=== PATIENT | male | born 1975 | race Caucasian/White ===

== ENCOUNTER 2017-03-03 20:44 | Emergency (ER) | payer BC ==
[2017-03-03 20:57] VITALS: BP 117/71
--- NOTE | 2017-03-03 21:15 | UC ---
Ear Complaint HPI - HPI Summary HPI Summary: 42 y/o male presents to the urgent care c/o left ear pain since this afternoon. Pain is throbbing 4/10 that is increasing. Pt has not taking anything to alleviate symptoms. Pt denies fever, dental pain, nasal congestion, ringing of the ear, dizziness, cough, sore throat, chest pain, N/V/D, abdominal pain. Pt states he had PMHX of GERD for the past 20 years and he did a colonoscopy about 1 year ago and since then symptoms resolved. Now only on diet control. - History of Current Complaint Chief Complaint: UCEar Stated Complaint: LEFT EAR PAIN Time Seen by Provider: 03/03/17 20:51 Hx Obtained From: Patient Onset/Duration: Sudden Onset, Lasting Days - today Severity Initially: Mild Severity Currently: Mild Pain Intensity: 4 Pain Scale Used: 0-10 Numeric Aggravating Factors: Nothing Alleviating Factors: Nothing Associated Signs/Symptoms: Negative: Hearing Loss, Trauma to Ear, Swelling @, URI Symptoms - Allergies/Home Medications Allergies/Adverse Reactions: Allergies Allergy/AdvReac Type Severity Reaction Status Date / Time No Known Allergies Allergy Verified 10/30/12 21:57 PMH/Surg Hx/FS Hx/Imm Hx Previously Healthy: Yes GI/ History: Gastroesophageal Reflux - now on diet control - Surgical History Surgical History: None - Family History Known Family History: Positive: Cardiac Disease, Hypertension, Diabetes - Social History Occupation: Employed Full-time Lives: With Family Alcohol Use: None Substance Use Type: None Smoking Status (MU): Never Smoked Tobacco Review of Systems Constitutional: Negative Skin: Negative Eyes: Negative ENT: Ear Ache - left ear pain Respiratory: Negative Cardiovascular: Negative Gastrointestinal: Negative Genitourinary: Negative Motor: Negative Neurovascular: Negative Musculoskeletal: Negative Neurological: Negative Psychological: Negative Is Patient Immunocompromised?: No All Other Systems Reviewed And Are Negative: Yes Physical Exam Triage Information Reviewed: Yes Vital Signs: Initial Vital Signs Temp 98.6 F 03/03/17 20:52 Pulse 71 03/03/17 20:52 Resp 18 03/03/17 20:52 BP 117/71 03/03/17 20:52 Pulse Ox 100 03/03/17 20:52 Ear Complaint Course/Dx - Course Course Of Treatment: 42 y/o male presents to the urgent care c/o left ear pain since this afternoon. Pain is throbbing 4/10 that is increasing. Pt has not taking anything to alleviate symptoms. Pt denies fever, dental pain, nasal congestion, ringing of the ear, dizziness, cough, sore throat, chest pain, N/V/D , abdominal pain. Pt states he had PMHX of GERD for the past 20 years and he did a colonoscopy about 1 year ago and since then symptoms resolved. Now only on diet control.Hx obtained. Pt with mild Left otitis media on examination. Pt to take Tylenol PO q4-6hrs to alleviate symptoms. However Pt Rx Amoxicillin PO and to start ABX in 2 days if not improvement of symptoms. Advised if symptoms do not improve or worsen to return to the urgent care or f/u with PCP in 1 week for further management. Pt understood and agreed with D/C instructions. - Differential Dx/Diagnosis Differential Diagnosis/HQI/PQRI: Barotrauma, Mastoiditis, Otitis Externa, Otitis Media, Perforated TM, URI Provider Diagnoses: 1- Left acute otitis media Discharge - Discharge Plan Condition: Stable Disposition: HOME Prescriptions: Amoxicillin PO (*) [Amoxicillin 875 MG (*)] 875 mg PO BID #20 tab Patient Education Materials: Otitis Media (ED) Referrals: Tex Garcia MD [Primary Care Provider] - 1 Week Additional Instructions: 1- Please start Antibiotic is not improvement of symptoms in 2 days and take the full course of the antibiotic to avoid resistance. 2-Please take Tylenol PO q4-6hrs prn as instructed to alleviate pain and swelling. Increase fluid intake, eat well, rest and avoid strenuous exercise 3-If symptoms do not improve or worsen please return to the urgent care or f/u with your PCP in 1 week for further evaluation and treatment.
== END 2017-03-03 21:24 | disposition home or self-care (01) ==
LOC: UCCORT 20:44
DX: H66.92 Otitis media, unspecified, left ear (principal)
CPT/HCPCS: 99202; G0463